=== PATIENT | female | born 1950 | race Caucasian/White ===

== ENCOUNTER 2018-05-16 19:30 | Observation (INO) ==
[2018-05-16 20:45] LABS: Basophils % 0.2 %; Eosinophils # 0.2 K/mcL (0.0-0.6); Eosinophils % 1.6 %; Hematocrit 37.4 % (35.3-44.9); Hemoglobin 11.6 g/dL (11.5-15.4); Immature Granulocytes % 0.5 % (0-4); Lymphocytes # 1.6 K/mcL (0.6-4.6); Lymphocytes % 14.9 %; Mean Corpuscular Hemoglobin 32.5 pg (28.0-33.3); Mean Corpuscular Volume 104.8 fL (83.0-100.0); Monocytes # 1.3 K/mcL (0.0-1.3); Monocytes % 11.5 %; Neutrophils # 7.8 K/mcL (1.6-8.9); Platelet Count 223 K/mcL (140-400); Red Blood Count 3.57 M/mcL (3.82-4.97); Red Cell Distribution Width 14.1 % (11.5-14.5); Segmented Neutrophils % 71.3 %
[2018-05-16 21:04] LABS: Alanine Aminotransferase 11 Units/L (7-52); Albumin 3.8 g/dL (3.5-5.7); Albumin/Globulin Ratio 1.3 (1.1-2.2); Alkaline Phosphatase 62 Units/L (34-104); Aspartate Amino Transferase 14 Units/L (13-39); BUN/Creatinine Ratio 15 (6-26); Bilirubin,Total 0.4 mg/dL (0.3-1.0); Blood Urea Nitrogen 22 mg/dL (8-23); Calcium 9.8 mg/dL (8.6-10.3); Carbon Dioxide 27 mEq/L (23-29); Chloride 105 mEq/L (98-107); Globulin 2.9 g/dL (2.4-3.5); Glucose 101 mg/dL (70-105); Osmolality,Calculated 293 (280-300); Potassium 3.7 mEq/L (3.5-5.1); Sodium 140 mEq/L (136-145); Total Protein 6.7 g/dL (6.4-8.9); eGFR For Non-African Americans 37 (> 60)
[2018-05-16] MEDS ORDERED: Clindamycin 600 MG/50 ML 600 MG/50 ML IV.SOLN IVPB STA (21:07)
[2018-05-16 21:11] LABS: Troponin I < 0.03 ng/mL (< 0.04)
[2018-05-16] MEDS ORDERED: 0.9 % Sodium Chloride 1,000 ML IVC SCH (21:15)
--- NOTE | 2018-05-16 22:16 | Emergency Department Note ---
Disposition Clinical Impression: RAO (acute kidney injury), Cellulitis of leg, left Disposition: Home, Self-Care Condition: Good Weakness HPI - General Chief complaint: ED Weakness Stated complaint: increased weakness Time Seen by Provider: 05/16/18 20:00 Source: patient Mode of arrival: private vehicle Limitations: no limitations Nursing Notes Reviewed: Yes Vital Signs Reviewed: Yes - History of Present Illness HPI Narrative: Patient presents to the ED complaining of generalized weakness with tingling cramping pain in her arms and fingers and headache. She states symptoms began around 8 AM this morning. States that she normally has generalized weakness but felt weaker than usual today and is felt like her gait has been unsteady. She also reports some increased shortness of breath with exertion that started this evening. She also complains of redness, swelling and wants to her left lower leg. She states that she bumped it 2 days ago and had an episode of heavy bleeding, likely from a varicose vein. Since then she has had spreading redness, swelling and warmth over the left anterior morales. She has a history of recurrent cellulitis with similar symptoms in the past and was recently treated for venous ulcer wound on the left leg. She took some leftover Keflex today She denies any recent falls or other form of injury. She drove herself here. She has chronic neck and back pain and normally takes Percocet with last dose of 5 PM this evening. She also tried using her inhaler this evening for her cough and shortness of breath. She wears home oxygen at 3 L/m at night and reports good compliance. Her headache is bitemporal in location, has been intermittent for the past week and throbbing in nature. The cramping pain and tingling sensation in her fingers has been intermittent as well, only affects the upper arms and has been going on for the past 4-5 days. She reports a cough productive of white phlegm for the past month. Pain Scale: 8 - Related Data Home Medications Medication Instructions Recorded Confirmed Allopurinol [Zyloprim 300 MG] 300 mg PO DAILY 11/18/17 05/16/18 Budesonide/Formoterol 160/4.5 2 puff IH BIDR 11/18/17 05/16/18 [Symbicort 160/4.5] Ipratropium/Albuterol Neb [Duoneb] 3 ml IH Q6HR PRN 11/18/17 04/24/18 Lisinopril [Zestril] 40 mg PO DAILY 11/18/17 05/16/18 Polyethylene Glycol 3350 [MiraLAX] 17 gm PO PRN PRN 11/18/17 05/16/18 Raloxifene [Evista] 60 mg PO DAILY 11/18/17 05/16/18 Rosuvastatin Calcium [Crestor] 20 mg PO DAILY 11/18/17 05/16/18 Tiotropium [Spiriva] 18 mcg IH 0700 11/18/17 05/16/18 Baclofen 20 mg PO BID 04/24/18 05/16/18 Esomeprazole Magnesium [Nexium] 40 mg PO DAILY 04/24/18 05/16/18 Furosemide [Lasix] 20 mg PO DAILY PRN 04/24/18 05/16/18 Venlafaxine XR (24 HR) [Effexor Xr] 150 mg PO DAILY 04/24/18 05/16/18 Cephalexin [Keflex] 500 mg PO BID 05/01/18 05/16/18 Baclofen [Lioresal] 10 mg PO BID 05/16/18 05/16/18 Guaifenesin [Mucinex] 600 mg PO DAILY 05/16/18 05/16/18 Metoprolol [Lopressor] 50 mg PO BID 05/16/18 05/16/18 Nicotine Patch [Nicoderm] 7 mg TD DAILY 05/16/18 05/16/18 Previous Rx's Medication Instructions Recorded Oxycodone HCl/Acetaminophen 1 each PO TID PRN 5 Days #15 tablet 04/26/18 [Percocet 5-325 mg Tablet] Allergies Allergy/AdvReac Type Severity Reaction Status Date / Time adhesive tape Allergy Hives Verified 05/16/18 20:06 pregabalin [From Lyrica] Allergy Dizziness Verified 05/16/18 20:06 Sulfa (Sulfonamide Allergy Swelling Verified 05/16/18 20:06 Antibiotics) of the Eye alprazolam [From Xanax] AdvReac Fatigued Verified 05/16/18 20:06 amitriptyline AdvReac Fatigued Verified 05/16/18 20:06 gabapentin AdvReac See Verified 05/16/18 20:06 Comments Tizanidine AdvReac Rash Verified 05/16/18 20:06 Constitutional: Denies: fever, chills, weakness, weight change Eyes: Denies: eye pain, eye discharge, vision change ENT ED: Denies: ear pain, throat pain, dental pain, hearing loss, epistaxis, congestion, dysphagia Cardiovascular: Reports: dyspnea on exertion. Denies: chest pain, palpitations , edema, syncope Respiratory: Reports: cough, dyspnea Gastrointestinal: Denies: abdominal pain, nausea, vomiting, diarrhea, constipation, hematemesis, melena, hematochezia Genitourinary: Reports: as per HPI. Denies: dysuria, frequency, hematuria, discharge Musculoskeletal: Denies: back pain, neck pain, arthralgia, myalgia Integumentary: Denies: rash, abrasion, lesions Neurological: Reports: as per HPI, headache, weakness Psychiatric: Denies: anxiety, depression, suicidal thoughts, homicidal thoughts , auditory hallucinations, visual hallucinations Endocrine: Denies: fatigue Hematological/Lymphatic: Denies: easy bleeding, easy bruising Allergic/Immunologic: Denies: facial swelling, urticaria Past Medical History - Past Medical History Medical history: Reports: cancer, COPD, GERD, hyperlipidemia, hypertension Surgical history: Reports: breast surgery, cancer surgery, hip replacement, orthopedic, other, other Psychiatric history: Reports: no psych history - Social History Smoking Status: Former smoker Smokeless Tobacco Status: No Alcohol use: Reports: none Drug use: Reports: none Physical Exam - General Limitations: no limitations General appearance: alert, in no apparent distress - Head Head exam: atraumatic, normocephalic, normal inspection - Eye Eye exam: Present: normal appearance, PERRL, EOMI - ENT ENT exam: normal exam, normal oropharynx, mucous membranes moist - Neck Neck exam: Present: normal inspection, full ROM, trachea midline - Chest Chest inspection: Present: normal inspection, symmetric chest wall rise - Respiratory Respiratory exam: Present: normal lung sounds bilaterally - Cardiovascular Cardiovascular exam: Present: regular rate, normal rhythm, normal heart sounds - Abdominal Exam Abdominal exam: Present: soft, Non-Tender. Absent: tenderness, distention, guarding, rebound, rigidity - Extremities Exam Extremities exam: Present: normal inspection, full ROM. Absent: tenderness, pedal edema - Expanded Lower Extremity Exam Knee exam: Present: normal inspection, full ROM Lower leg exam: Present: swelling (left), erythema (and warmth, left), other ( varicose veins) Ankle exam: Present: normal inspection, full ROM Neurovascular/Tendon exam: Absent: motor deficit, sensory deficit, tendon deficit - Back Exam Back exam: Present: normal inspection, full ROM. Absent: tenderness - Neurological Exam Neurological exam: Present: alert, oriented X3 - Psychiatric Psychiatric exam: Present: normal affect, normal mood - Skin Skin exam: Present: warm, dry, intact, normal color Course Course Narrative: Patient presents to the ED complaining of worsening of some generalized weakness , tingling and pain in her upper arms as well as headache and left leg redness, and warmth. Given the neurologic symptoms head CT was completed shortly after arrival and was normal. EKG showed tachycardia but was otherwise normal. Physical exam is notable for what appears to be cellulitis of the left anterior morales with redness, swelling and warmth a small scabbed area over a superficial varicosity. Given patient's symptoms will obtain chest x-ray and additional lab work and started on IV antibiotics for the cellulitis. - Reevaluation(s) Reevaluation #1: Laboratory studies did not show any leukocytosis and lactic acid was normal. Creatinine however was elevated but patient's bed baseline. She started on IV fluids as well as antibiotics. Discussed with patient admission for continued hydration and IV antibiotics and monitoring of symptoms and she is in agreement. Reevaluation #2: I spoke to Dr. Sanchez who has agreed to accept the patient. Patient and spouse updated on plan. Time: 22:46 Vital Signs Temperature 99.8 F H 05/16/18 19:31 Pulse Rate 120 05/16/18 19:31 Respiratory Rate 18 05/16/18 19:31 Blood Pressure 123/73 05/16/18 19:31 O2 Sat by Pulse Oximetry 91 05/16/18 19:31 Temperature 99.3 F 05/17/18 00:22 Pulse Rate 107 05/17/18 00:22 Respiratory Rate 17 05/17/18 00:22 Blood Pressure 120/69 05/17/18 00:22 O2 Sat by Pulse Oximetry 97 05/17/18 00:22 Oxygen Delivery Oxygen Delivery Nasal Cannula Weakness - Differential Diagnosis Differential Diagnosis: Likely: sepsis/infection, dehydration, metabolic. Unlikely: stroke - Medical Records Medical records reviewed: Yes I reviewed the patient's medical records. - Lab Data Lab results reviewed: Yes I reviewed the patient's lab results. Result diagrams: 05/16/18 20:34 05/16/18 20:34 Lab Results 05/16/18 05/16/18 05/16/18 Range/Units 20:34 20:34 20:34 WBC 10.9 (4.3-11.1) K/mcL RBC 3.57 L (3.82-4.97) M/mcL Hgb 11.6 (11.5-15.4) g/dL Hct 37.4 (35.3-44.9) % MCV 104.8 H (83.0-100.0) fL MCH 32.5 (28.0-33.3) pg MCHC 31.0 L (31.6-35.5) g/dL RDW 14.1 (11.5-14.5) % Plt Count 223 (140-400) K/mcL MPV 10.0 (9.4-12.4) fL Immature Gran % 0.5 (0-4) % Seg Neutrophils % 71.3 % Lymphocytes % 14.9 % Monocytes % 11.5 % Eosinophils % 1.6 % Basophils % 0.2 % Neutrophils # 7.8 (1.6-8.9) K/mcL Lymphocytes # 1.6 (0.6-4.6) K/mcL Monocytes # 1.3 (0.0-1.3) K/mcL Eosinophils # 0.2 (0.0-0.6) K/mcL Basophils # 0.0 (0.0-0.2) K/mcL Sodium 140 (136-145) mEq/L Potassium 3.7 (3.5-5.1) mEq/L Chloride 105 (98-107) mEq/L Carbon Dioxide 27 (23-29) mEq/L BUN 22 (8-23) mg/dL Creatinine 1.44 H (0.60-1.20) mg/dL Est GFR ( Amer) 44 L (> 60) Est GFR (Non-Af Amer) 37 L (> 60) BUN/Creatinine Ratio 15 (6-26) Glucose 101 (70-105) mg/dL Calculated Osmolality 293 (280-300) Lactic Acid 1.0 (0.5-2.2) mmol/L Calcium 9.8 (8.6-10.3) mg/dL Total Bilirubin 0.4 (0.3-1.0) mg/dL AST 14 (13-39) Units/L ALT 11 (7-52) Units/L Alkaline Phosphatase 62 (34-104) Units/L Troponin I < 0.03 (< 0.04) ng/mL Serum Total Protein 6.7 (6.4-8.9) g/dL Albumin 3.8 (3.5-5.7) g/dL Globulin 2.9 (2.4-3.5) g/dL Albumin/Globulin Ratio 1.3 (1.1-2.2) - Radiology Data Radiology results reviewed: Yes I reviewed the patient's radiology results. ITS Impressions Head CT 05/16/18 19:48 IMPRESSION: No acute intracranial abnormality. Findings were discussed with Dr. Keren Mishra of the [facility] emergency department at 8:15 pm on 05/16/2018. D/ / Vick Geller MD / Vick Geller MD Interpreting Provider: Vick Geller MD Chest X-Ray 05/16/18 21:08 IMPRESSION: Negative portable chest D/ / Arias Willoughby MD / Arias Willoughby MD Interpreting Provider: Arias Willoughby MD - EKG Data EKG attestation: Yes I reviewed and interpreted this EKG. EKG shows normal: sinus rhythm Rate: tachycardia (rate 116) Rhythm: NSR [place]ell/QRS: normal Interpretation: no acute changes, unchanged when compared to prior tracing (date ) (04/24/18), nonspecific ST-T wave changes
[2018-05-16] MEDS ORDERED: Naloxone 0.4 MG/ML INJ IVP PRN (23:05)
[2018-05-17] MEDS ORDERED: Naloxone 0.4 MG/ML INJ IVP PRN (00:15)
[2018-05-17] MEDS ORDERED: 0.9 % Sodium Chloride 1,000 ML IVC SCH (00:15)
[2018-05-17 03:04] LABS: Bilirubin,Urine Negative (Negative); Blood,Urine Negative (Negative); Clarity,Urine Clear (Clear); Color,Urine Yellow (Yellow); Glucose,Urine (UA) Normal (Normal); Ketones,Urine Negative (Negative); Leukocyte Esterase,Urine Negative (Negative); Nitrite,Urine Negative (Negative); Protein,Urine Negative (Neg-Trace); Urobilinogen,Urine Normal (Normal)
[2018-05-17 07:20] LABS: Calcium 9.2 mg/dL (8.6-10.3); Potassium 3.5 mEq/L (3.5-5.1)
[2018-05-17] MEDS: Venlafaxine XR (24 HR) 150 MG CAP.ER.24H PO SCH (08:53)
[2018-05-17] MEDS: Baclofen 10 MG TABLET PO SCH ×2 (08:54→21:16)
[2018-05-17] MEDS ORDERED: Lisinopril 20 MG TABLET PO SCH (09:00)
[2018-05-17] MEDS ORDERED: Baclofen 10 MG TABLET PO SCH (09:00)
[2018-05-17] MEDS ORDERED: Nicotine 7 MG PATCH.TD24 TD SCH (09:00)
[2018-05-17] MEDS: Tiotropium 18 MCG inhalation IH SCH (11:46)
[2018-05-17] MEDS: Budesonide/Formoterol 160/4.5 1 PUFF INH IH SCH ×2 (11:46→21:19)
--- NOTE | 2018-05-17 12:14 | Internal Med History&Physical ---
Date of Encounter: 05/17/18 Time of Encounter: 11:35 Assessment and Plan (1) Renal failure (ARF), acute on chronic Current visit: No Status: Acute Will hold Lasix and lisinopril. Give IV fluids and monitor renal indices. Qualifiers: Acute renal failure type: unspecified Chronic kidney disease stage: stage 3 (moderate) Qualified Code(s): N17.9 - Acute kidney failure, unspecified; N18.3 - Chronic kidney disease, stage 3 (moderate) (2) Venous stasis dermatitis of both lower extremities Current visit: Yes Status: Acute Keep legs elevated and monitor. Will not give antibiotics. (3) Macrocytosis without anemia Current visit: Yes Status: Acute Workup earlier this month showed B12 > 1500, folate 11.9, and TSH 0.83. (4) HTN (hypertension) Current visit: No Status: Chronic Continue Lopressor. Hold Zestril for now and monitor blood pressure and renal indices. Qualifiers: Hypertension type: essential hypertension Qualified Code(s): I10 - Essential (primary) hypertension (5) COPD (chronic obstructive pulmonary disease) Current visit: No Status: Chronic Continue Symbicort and Spiriva. Qualifiers: COPD type: unspecified COPD Qualified Code(s): J44.9 - Chronic obstructive pulmonary disease, unspecified Internal Medicine - H&P: HPI Chief complaint: Weakness, leg redness Admitted From: Emergency Dept Plans for Post Hospital Care: Home History of present illness: Ms. Armijo is a 67 year old female who came to emergency room stating she had noted redness in her legs 3 days earlier, more right leg than left leg. She had progressive weakness and a small amount of diarrhea after arising on the day of admission. She took a leftover Keflex till from a previous prescription without significant improvement. She came to emergency room and was evaluated and found to have acute on chronic renal failure and leg erythema possibly cellulitis. She was admitted to [facility] floor for ongoing care needs. She states she has had previous similar leg erythema and is been treated with multiple courses of antibiotics. 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 She has history of kidney stones but denies other kidney or bladder disorders. Past Med Surg Social Fam HX - Past Medical History Medical history: cancer, COPD, GERD, hyperlipidemia, hypertension Additional medical history: breast ca Psychiatric history: no psych history - Past Surgical History Surgical History: breast surgery, cancer surgery, hip replacement, orthopedic, other, other Additional surgical history: bilat knee replacement; right hip; femur surgery, left lumpectomy - Social History Smoking Status: Former smoker Smokeless Tobacco Status: No Alcohol use: none Drug use: none - Family History Mother Living Status: Hx Family Cardiac Disorders: Yes Hx Family Cancer: No Hx Family GI Disorders: No Hx Family Endocrine Disorder: Yes (DM) Hx Family Neuromuscular Disorders: No Hx Family Neurologic Disorders: No Hx Family HEENT Disorders: No Hx Family Autoimmune Disorders: No Father Living Status: Hx Family Cardiac Disorders: Yes Hx Family Respiratory Disorders: No Hx Family Cancer: Yes (Colon) Hx Family GI Disorders: No Hx Family Endocrine Disorder: No Hx Family Neuromuscular Disorders: No Hx Family Neurologic Disorders: No Hx Family HEENT Disorders: No Hx Family Autoimmune Disorders: No Internal Medicine - H&P: Meds Allopurinol [Zyloprim 300 MG] 300 mg PO DAILY 11/18/17 [History] Budesonide/Formoterol 160/4.5 [Symbicort 160/4.5] 2 puff IH BIDR 11/18/17 [ History] Ipratropium/Albuterol Neb [Duoneb] 3 ml IH Q6HR PRN 11/18/17 [History] Lisinopril [Zestril] 40 mg PO DAILY 11/18/17 [History] Polyethylene Glycol 3350 [MiraLAX] 17 gm PO PRN PRN 11/18/17 [History] Raloxifene [Evista] 60 mg PO DAILY 11/18/17 [History] Rosuvastatin Calcium [Crestor] 20 mg PO DAILY 11/18/17 [History] Tiotropium [Spiriva] 18 mcg IH 0700 11/18/17 [History] Baclofen 20 mg PO BID 04/24/18 [History] Esomeprazole Magnesium [Nexium] 40 mg PO DAILY 04/24/18 [History] Furosemide [Lasix] 20 mg PO DAILY PRN 04/24/18 [History] Venlafaxine XR (24 HR) [Effexor Xr] 150 mg PO DAILY 04/24/18 [History] Oxycodone HCl/Acetaminophen [Percocet 5-325 mg Tablet] 1 each PO TID PRN 5 Days #15 tablet 08/09/18 [Rx] Cephalexin [Keflex] 500 mg PO BID 05/01/18 [History] Guaifenesin [Mucinex] 600 mg PO DAILY 05/16/18 [History] Metoprolol [Lopressor] 50 mg PO BID 05/16/18 [History] Nicotine Patch [Nicoderm] 7 mg TD DAILY 05/16/18 [History] 3 Allergy/AdvReac Type Severity Reaction Status Date / Time adhesive tape Allergy Hives Verified 05/16/18 20:06 pregabalin [From Lyrica] Allergy Dizziness Verified 05/16/18 20:06 Sulfa (Sulfonamide Allergy Swelling Verified 05/16/18 20:06 Antibiotics) of the Eye alprazolam [From Xanax] AdvReac Fatigued Verified 05/16/18 20:06 amitriptyline AdvReac Fatigued Verified 05/16/18 20:06 gabapentin AdvReac See Verified 05/16/18 20:06 Comments Tizanidine AdvReac Rash Verified 05/16/18 20:06 All Systems PM: A 10-system review of systems was performed and is negative for pertinent findings except as documented above in the HPI. Review of systems: Gen.: Her weight has been stable at approximate 78 kg since March 2016 [facility] hospitalization. Cardiovascular: She has history of hypertension but denies [place] heart failure angina DVT or pulmonary embolus Respiratory: She smoked from age 24 until 6 months ago up to 1 pack per day. She has a diagnosis COPD and wears oxygen at at bedtime and when necessary. She has MARIANO but does not often use her CPAP GI: She denies disorders of her liver gallbladder or exocrine pancreas. She has GERD. : As per history of present illness Neurologic: She denies large distribution strokes or seizures Endocrine: She has been told she has pre-diabetes. Most recent hemoglobin A1c was 5.7% on 03/04/2016. She has hyperlipidemia but denies thyroid disease Hematology/oncology: She has had anemia in the past. She had breast cancer diagnosed 2007 and had lumpectomy, XRT, and chemotherapy. She is presumed cancer free. She denies other known internal malignancies Psychiatric: She has anxiety but denies depression or other mental health issues Musculoskeletal: She has had left elbow tendon surgery, DJD with bilateral total knee replacements, total hip replacement and 4 back surgeries. She has gout and takes allopurinol daily. - Constitutional Vitals: Temp Pulse Resp BP Pulse Ox 98.6 F 72 20 118/73 99 05/17/18 10:21 05/17/18 10:21 05/17/18 10:21 05/17/18 10:21 05/17/18 10:21 Exam: Gen.: She is a well-developed well-nourished female lying comfortably in bed who appears in no acute distress at present time. HEENT: Head is atraumatic and normocephalic. Eyes: EOMI. There is no scleral icterus. Mouth: Mucosa is moist. Neck: Supple and nontender. There is no thyromegaly or adenopathy noted. Heart: Regular without murmurs gallops or ectopics Lungs: No wheezes or crackles are heard. Abdomen: Soft and nontender. No masses or guarding are noted. Extremities: She has erythema of the lower legs bilaterally, significantly more intense on the left. There is increased warmth to touch. There is ill-defined border to the erythema bilaterally. Dorsalis pedis and posterior tibial pulses are trace palpable bilaterally. She has mild DJD changes of her hands. Neurologic: Mental status: She is talkative and a good historian. Cranial nerves: Smile is symmetric. Forehead wrinkles bilaterally. Tongue protrudes midline. EOMI. Motor: There is no pronator drift. Cerebellar: Finger to nose is intact bilaterally. Skin: Warm and dry Internal Med - H&P Results - Labs CBC & Chem 7: 05/16/18 20:34 05/17/18 06:54 Labs: BMP 05/17/18 06:54 Sodium 140 Potassium 3.5 Chloride 110 H Carbon Dioxide 24 BUN 18 Creatinine 1.15 Glucose 115 H Calcium 9.2 Urine 05/16/18 Range/Units 23:50 Urine Color Yellow (Yellow) Urine Clarity Clear (Clear) Urine pH 6.0 (5.0-8.0) pH Units Ur Specific [place] 1.020 (1.010-1.025) Urine Protein Negative (Neg-Trace) mg/dL Urine Glucose (UA) Normal (Normal) mg/dL - VTE Reasons for not Prescribing Prophylaxis: Treatment not Indicated - Low risk for VTE
[2018-05-17] MEDS: 0.45 % Sodium Chloride w/KCl 20 MEQ/1,000 ML MLS IVC SCH ×2 (12:52→23:46)
[2018-05-17] MEDS: *HR* OxyCODONE/APAP 5/325 TABLET PO PRN (21:16)
[2018-05-18 07:25] VITALS: BP 134/86
[2018-05-18 07:56] LABS: BUN/Creatinine Ratio 14 (6-26); Blood Urea Nitrogen 14 mg/dL (8-23); Calcium 9.7 mg/dL (8.6-10.3); Carbon Dioxide 24 mEq/L (23-29); Chloride 112 mEq/L (98-107); Glucose 91 mg/dL (70-105); Osmolality,Calculated 292 (280-300); Potassium 4.1 mEq/L (3.5-5.1); Sodium 141 mEq/L (136-145); eGFR For Non-African Americans 58 (> 60)
[2018-05-18] MEDS: Tiotropium 18 MCG inhalation IH SCH (08:46)
[2018-05-18] MEDS: Budesonide/Formoterol 160/4.5 1 PUFF INH IH SCH (08:47)
[2018-05-18 09:16] LABS: Basophils % 0.5 %; Eosinophils # 0.4 K/mcL (0.0-0.6); Eosinophils % 4.7 %; Hematocrit 39.5 % (35.3-44.9); Hemoglobin 12.1 g/dL (11.5-15.4); Immature Granulocytes % 0.2 % (0-4); Lymphocytes # 2.1 K/mcL (0.6-4.6); Lymphocytes % 25.6 %; Mean Corpuscular HGB Conc 30.6 g/dL (31.6-35.5); Mean Corpuscular Volume 107.6 fL (83.0-100.0); Monocytes # 0.9 K/mcL (0.0-1.3); Monocytes % 10.5 %; Neutrophils # 4.8 K/mcL (1.6-8.9); Platelet Count 212 K/mcL (140-400); Red Blood Count 3.67 M/mcL (3.82-4.97); Red Cell Distribution Width 13.9 % (11.5-14.5); Segmented Neutrophils % 58.5 %
[2018-05-18] MEDS: Venlafaxine XR (24 HR) 150 MG CAP.ER.24H PO SCH (09:55)
[2018-05-18] MEDS: Baclofen 10 MG TABLET PO SCH (09:55)
[2018-05-18] MEDS: *HR* OxyCODONE/APAP 5/325 TABLET PO PRN (09:58)
--- NOTE | 2018-05-18 09:59 | Discharge Summary ---
Orders not resulted at time of discharge: Pending orders 05/18/18 09:00 Hgb A1C AM 0400 Date of Encounter: 05/18/18 Time of Encounter: 09:50 - Discharge Diagnosis (1) Renal failure (ARF), acute on chronic Priority: Primary Status: Acute Qualifiers: Acute renal failure type: unspecified Chronic kidney disease stage: stage 3 (moderate) Qualified Code(s): N17.9 - Acute kidney failure, unspecified; N18.3 - Chronic kidney disease, stage 3 (moderate) (2) Venous stasis dermatitis of both lower extremities Priority: Secondary Status: Acute (3) Macrocytosis without anemia Priority: Secondary Status: Acute (4) HTN (hypertension) Priority: Secondary Status: Chronic Qualifiers: Hypertension type: essential hypertension Qualified Code(s): I10 - Essential (primary) hypertension (5) COPD (chronic obstructive pulmonary disease) Priority: Secondary Status: Chronic Qualifiers: COPD type: unspecified COPD Qualified Code(s): J44.9 - Chronic obstructive pulmonary disease, unspecified Hospital course: Ms. Armijo is a 67 year old female who came to emergency room stating she had noted redness in her legs 3 days earlier, more right leg than left leg. She had progressive weakness and a small amount of diarrhea after arising on the day of admission. She took a leftover Keflex till from a previous prescription without significant improvement. She came to emergency room and was evaluated and found to have acute on chronic renal failure and leg erythema possibly cellulitis. [facility] was [facility] care needs. Initial orders were written by the emergency room physician. I saw her on May 17 and performed a history and physical. I felt she had venous stasis dermatitis rather than bacterial cellulitis of her legs. Antibiotics were not given. She was prescribed leg elevation and I encouraged her to use compression stockings at home. Lasix and lisinopril were held and IV fluids were given. Renal indices improved with BUN and creatinine decreasing to 14 and 0.97 respectively the day of discharge with estimated GFR 58. Her blood pressure remained stable and she will remain off Lasix and lisinopril at discharge. Her PCP can monitor renal indices and blood pressure and determine if additional intervention is needed. There were no other new problems and on May 18 she felt stable for discharge home. She will follow with her PCP Dr. Ramon Geller within 1 week. - Time Spent with Patient Total time spent providing and/or coordinating discharge services: - Discharge Medications Home Medications: Allopurinol [Zyloprim 300 MG] 300 mg PO DAILY 11/18/17 [History] Budesonide/Formoterol 160/4.5 [Symbicort 160/4.5] 2 puff IH BIDR 11/18/17 [ History] Ipratropium/Albuterol Neb [Duoneb] 3 ml IH Q6HR PRN 11/18/17 [History] Polyethylene Glycol 3350 [MiraLAX] 17 gm PO PRN PRN 11/18/17 [History] Raloxifene [Evista] 60 mg PO DAILY 11/18/17 [History] Rosuvastatin Calcium [Crestor] 20 mg PO DAILY 11/18/17 [History] Tiotropium [Spiriva] 18 mcg IH 0700 11/18/17 [History] Baclofen 20 mg PO BID 04/24/18 [History] Esomeprazole Magnesium [Nexium] 40 mg PO DAILY 04/24/18 [History] Venlafaxine XR (24 HR) [Effexor Xr] 150 mg PO DAILY 04/24/18 [History] Oxycodone HCl/Acetaminophen [Percocet 5-325 mg Tablet] 1 each PO TID PRN 5 Days #15 tablet 04/26/18 [Rx] Guaifenesin [Mucinex] 600 mg PO DAILY 05/16/18 [History] Metoprolol [Lopressor] 50 mg PO BID 05/16/18 [History] Nicotine Patch [Nicoderm] 7 mg TD DAILY 05/16/18 [History] Allergies/Adverse Reactions: 3 Allergy/AdvReac Type Severity Reaction Status Date / Time adhesive tape Allergy Hives Verified 05/16/18 20:06 pregabalin [From Lyrica] Allergy Dizziness Verified 05/16/18 20:06 Sulfa (Sulfonamide Allergy Swelling Verified 05/16/18 20:06 Antibiotics) of the Eye alprazolam [From Xanax] AdvReac Fatigued Verified 05/16/18 20:06 amitriptyline AdvReac Fatigued Verified 05/16/18 20:06 gabapentin AdvReac See Verified 05/16/18 20:06 Comments Tizanidine AdvReac Rash Verified 05/16/18 20:06 Date of admission: 05/16/18 23:18 Primary care physician: Ramon Geller MD Consults: 05/17/18 18:38 Consult to Occupational Therapy [CONS] Routine Comment: Evaluate, develop and implement POC Reason for Consult: Weakness Does patient have active BEDREST order?: No Is patient medically & hemodynamically stable?: Yes Patient assessed for mobility or mobilized this visit?: Yes Consult to Physical Therapy [CONS] Routine Comment: Evaluate, develop and implement POC Reason for Consult: Weakness Does patient have active BEDREST order?: No Is patient medically & hemodynamically stable?: Yes Patient assessed for mobility or mobilized this visit?: Yes - Constitutional Vitals: Temp Pulse Resp BP Pulse Ox 98.2 F 72 16 134/86 100 05/18/18 07:22 05/18/18 07:22 05/18/18 07:22 05/18/18 07:22 05/18/18 07:22 - Patient Status Disposition: Home, Self-Care Condition: Good - Discharge Instructions Follow Up With: Ramon Geller MD [Primary Care Provider] - 1 week - Diet and Activity Activity: resume usual activities as tolerated Diet: advance to your usual diet - VTE Reasons for not Prescribing Prophylaxis: Treatment not Indicated - Low risk for VTE
[2018-05-18 13:38] LABS: Estimated Average Glucose 120 mg/dl; Hemoglobin A1C 5.8 %
--- NOTE | 2018-05-21 13:02 | Electrocardiograph Report ---
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
== END 2018-05-18 10:45 | disposition home or self-care (01) ==
LOC: EMEROOPIK 19:30 → INPPIK 19:30
PROVIDERS: ADMIT Internal Medicine; ATTEND Internal Medicine

== ENCOUNTER 2018-07-10 20:43 | Observation (INO) ==
[2018-07-10] MEDS ORDERED: Ipratropium/Albuterol Neb 3 ML IH ONE (21:05)
[2018-07-10] MEDS ORDERED: 0.9 % Sodium Chloride 1,000 ML IVC ONE (21:05)
[2018-07-10 21:43] LABS: Basophils % 0.2 %; Eosinophils # 0.1 K/mcL (0.0-0.6); Eosinophils % 0.7 %; Hematocrit 36.8 % (35.3-44.9); Hemoglobin 11.8 g/dL (11.5-15.4); Immature Granulocytes % 0.7 % (0-4); Lymphocytes # 1.6 K/mcL (0.6-4.6); Lymphocytes % 10.3 %; Mean Corpuscular HGB Conc 32.1 g/dL (31.6-35.5); Mean Corpuscular Hemoglobin 32.2 pg (28.0-33.3); Mean Corpuscular Volume 100.3 fL (83.0-100.0); Mean Platelet Volume 9.5 fL (9.4-12.4); Monocytes # 1.4 K/mcL (0.0-1.3); Monocytes % 9.4 %; Platelet Count 220 K/mcL (140-400); Red Blood Count 3.67 M/mcL (3.82-4.97); Red Cell Distribution Width 14.2 % (11.5-14.5); Segmented Neutrophils % 78.7 %
[2018-07-10 21:51] LABS: Prothrombin Time 11.6 Seconds (9.4-12.1)
[2018-07-10] MEDS ORDERED: Levofloxacin 750 MG/150 ML 750 MG/150 ML BAG IVPB ONE (22:01)
[2018-07-10 22:03] LABS: BUN/Creatinine Ratio 12 (6-26); Blood Urea Nitrogen 13 mg/dL (8-23); Calcium 9.8 mg/dL (8.6-10.3); Carbon Dioxide 27 mEq/L (23-29); Chloride 100 mEq/L (98-107); Glucose 114 mg/dL (70-105); Osmolality,Calculated 277 (280-300); Potassium 3.5 mEq/L (3.5-5.1); Sodium 133 mEq/L (136-145); Troponin I < 0.03 ng/mL (< 0.04); eGFR For Non-African Americans 53 (> 60)
--- NOTE | 2018-07-10 22:04 | Emergency Department Note ---
Disposition Clinical Impression: Acute exacerbation of chronic obstructive airways disease, Cellulitis of right lower extremity Disposition: Admitted As Inpatient Condition: Fair Referrals: Ramon Geller MD [Primary Care Provider] - Forms: ED Satisfaction Letter Time of Disposition: 22:42 SOB HPI - General Chief Complaint: ED Shortness of Breath/Dyspnea Stated Complaint: Dyspnea onset this AM, redness, edema right leg Time Seen by Provider: 07/10/18 21:03 Source: patient, family, EMS Mode of arrival: EMS Limitations: no limitations Nursing Notes Reviewed: Yes Vital Signs Reviewed: Yes - History of Present Illness Pt Subjective Complaint: shortness of breath, cough Onset (ago): day(s) (3 days) Severity: moderate Consistency/Duration: gradually worsening Improves with: nothing Worsens with: exertion Known history of: COPD Associated symptoms: Reports: fever, cough Treatment prior to arrival: oxygen, bronchodilator Cough present: Yes Cough Description: Productive Cough Frequency: Intermittent Sputum production: Yes Sputum Amount: Moderate - Related Data Home Medications Medication Instructions Recorded Confirmed Allopurinol [Zyloprim 300 MG] 300 mg PO DAILY 11/18/17 07/10/18 Budesonide/Formoterol 160/4.5 2 puff IH BIDR 11/18/17 07/10/18 [Symbicort 160/4.5] Ipratropium/Albuterol Neb [Duoneb] 3 ml IH Q6HR PRN 11/18/17 07/10/18 Polyethylene Glycol 3350 [MiraLAX] 17 gm PO PRN PRN 11/18/17 07/10/18 Raloxifene [Evista] 60 mg PO DAILY 11/18/17 07/10/18 Rosuvastatin Calcium [Crestor] 20 mg PO DAILY 11/18/17 07/10/18 Tiotropium [Spiriva] 18 mcg IH 0700 11/18/17 07/10/18 Baclofen 20 mg PO BID 04/24/18 07/10/18 Esomeprazole Magnesium [Nexium] 40 mg PO DAILY 04/24/18 07/10/18 Venlafaxine XR (24 HR) [Effexor Xr] 150 mg PO DAILY 04/24/18 07/10/18 Guaifenesin [Mucinex] 600 mg PO DAILY 05/16/18 07/10/18 Metoprolol [Lopressor] 50 mg PO BID 05/16/18 07/10/18 Nicotine Patch [Nicoderm] 7 mg TD DAILY 05/16/18 07/10/18 Previous Rx's Medication Instructions Recorded Oxycodone HCl/Acetaminophen 1 each PO TID PRN 5 Days #15 tablet 04/26/18 [Percocet 5-325 mg Tablet] Allergies Allergy/AdvReac Type Severity Reaction Status Date / Time adhesive tape Allergy Hives Verified 05/16/18 20:06 pregabalin [From Lyrica] Allergy Dizziness Verified 05/16/18 20:06 Sulfa (Sulfonamide Allergy Swelling Verified 05/16/18 20:06 Antibiotics) of the Eye alprazolam [From Xanax] AdvReac Fatigued Verified 05/16/18 20:06 amitriptyline AdvReac Fatigued Verified 05/16/18 20:06 gabapentin AdvReac See Verified 05/16/18 20:06 Comments Tizanidine AdvReac Rash Verified 05/16/18 20:06 All systems ED: reviewed and negative except as stated. Constitutional: Reports: fever, chills ENT ED: Reports: congestion. Denies: ear pain, throat pain Cardiovascular: Denies: chest pain, palpitations Respiratory: Reports: cough, dyspnea, wheezes Gastrointestinal: Denies: abdominal pain, nausea, vomiting, diarrhea Integumentary: Reports: rash (Redness to bilateral lower extremities, especially the right that has developed over the past 48 hours.) Neurological: Denies: headache Psychiatric: Reports: anxiety Past Medical History - Past Medical History Attestation: Yes The following information was validated with the patient. Source: patient, old records reviewed, obtained from family, nursing notes reviewed Medical history: Reports: cancer, COPD, GERD, hyperlipidemia, hypertension Surgical history: Reports: breast surgery, cancer surgery, hip replacement, orthopedic, other, other Psychiatric history: Reports: no psych history - Social History Smoking Status: Former smoker Smokeless Tobacco Status: No Alcohol use: Reports: none Drug use: Reports: none Physical Exam - General Limitations: no limitations General appearance: alert, other (Tachypneic and coughing) - Head Head exam: atraumatic, normocephalic, normal inspection - Eye Eye exam: Present: normal appearance, PERRL, EOMI. Absent: scleral icterus, conjunctival injection - ENT ENT exam: normal exam, normal oropharynx, mucous membranes moist, TM's normal bilaterally, normal external ear exam - Neck Neck exam: Present: normal inspection, full ROM. Absent: meningismus - Chest Chest inspection: Present: normal inspection, symmetric chest wall rise. Absent: tenderness - Respiratory Respiratory exam: Present: other (Course breath sounds bilaterally associated with tachypnea) - Cardiovascular Cardiovascular exam: Present: normal rhythm, tachycardia, normal heart sounds - Abdominal Exam Abdominal exam: Present: soft, Non-Tender, normal bowel sounds - Extremities Exam Extremities exam: Present: other (Bilateral lower extremity's have some edema and obvious cellulitis to the anterior aspect of the right leg and small amount of cellulitis to the lateral aspect of the left lower leg.) - Neurological Exam Neurological exam: Present: alert, oriented X3 - Psychiatric Psychiatric exam: Present: anxious - Skin Skin exam: Present: warm, dry Course Course Narrative: Patient presents with shortness of breath and cough and congestion as well as rule out for the past 3 days. Breath sounds are coarse. She has history of COPD. She does have fever. Questions is whether the fevers coming from what going on in the lungs or whether the fevers coming from was going on in the legs. She definitely has bilateral lower extremity cellulitis but the right side is definitely worse. I will get an infection workup going on the patient. We will get her started on antibiotics. I am going to choose Vanco and Levaquin to double cover the lungs and the legs. She will need to be admitted to the hospital. - Reevaluation(s) Reevaluation #1: Chest x-ray was clear. Patient's temperatures up to 101. White count is 15. Definitely cellulitis to the right lower extremity. I started her on vancomycin and Levaquin. I spoke with the hospitalist and arrange to have her admitted. Time: 22:41 - Consultations Consultation #1: Dr. Sanchez, hospitalist - I discussed case with the hospitalist. We discussed patient's presentation and ER course and treatment thus far. He is accepted pa asha for admission. Time: 22:41 Vital Signs Temperature 100.5 F H 07/10/18 20:48 Pulse Rate 112 07/10/18 20:48 Respiratory Rate 28 07/10/18 20:48 Blood Pressure 133/91 07/10/18 20:48 O2 Sat by Pulse Oximetry 95 07/10/18 20:48 Temperature 100.5 F H 07/10/18 20:48 Pulse Rate 112 07/10/18 20:48 Respiratory Rate 28 07/10/18 20:48 Blood Pressure 133/91 07/10/18 20:48 O2 Sat by Pulse Oximetry 95 07/10/18 20:48 Oxygen Delivery Oxygen Delivery Room Air Shortness of Breath/Dyspnea - Medical Records Medical records reviewed: Yes I reviewed the patient's medical records. - Lab Data Lab results reviewed: Yes I reviewed the patient's lab results. Result diagrams: 07/10/18 21:25 07/10/18 21:25 Lab Results 07/10/18 07/10/18 07/10/18 Range/Units 21:25 21:25 21:25 WBC 15.2 H (4.3-11.1) K/mcL RBC 3.67 L (3.82-4.97) M/mcL Hgb 11.8 (11.5-15.4) g/dL Hct 36.8 (35.3-44.9) % MCV 100.3 H (83.0-100.0) fL MCH 32.2 (28.0-33.3) pg MCHC 32.1 (31.6-35.5) g/dL RDW 14.2 (11.5-14.5) % Plt Count 220 (140-400) K/mcL MPV 9.5 (9.4-12.4) fL Immature Gran % 0.7 (0-4) % Seg Neutrophils % 78.7 % Lymphocytes % 10.3 % Monocytes % 9.4 % Eosinophils % 0.7 % Basophils % 0.2 % Neutrophils # 12.0 H (1.6-8.9) K/mcL Lymphocytes # 1.6 (0.6-4.6) K/mcL Monocytes # 1.4 H (0.0-1.3) K/mcL Eosinophils # 0.1 (0.0-0.6) K/mcL Basophils # 0.0 (0.0-0.2) K/mcL PT 11.6 (9.4-12.1) Seconds INR 1.0 Sodium 133 L (136-145) mEq/L Potassium 3.5 (3.5-5.1) mEq/L Chloride 100 (98-107) mEq/L Carbon Dioxide 27 (23-29) mEq/L BUN 13 (8-23) mg/dL Creatinine 1.05 (0.60-1.20) mg/dL Est GFR ( Amer) > 60 (> 60) Est GFR (Non-Af Amer) 53 L (> 60) BUN/Creatinine Ratio 12 (6-26) Glucose 114 H (70-105) mg/dL Calculated Osmolality 277 L (280-300) Lactic Acid (0.5-2.2) mmol/L Calcium 9.8 (8.6-10.3) mg/dL Troponin I < 0.03 (< 0.04) ng/mL B-Natriuretic Peptide (Less than 100) pg/mL 07/10/18 07/10/18 Range/Units 21:25 21:25 WBC (4.3-11.1) K/mcL RBC (3.82-4.97) M/mcL Hgb (11.5-15.4) g/dL Hct (35.3-44.9) % MCV (83.0-100.0) fL MCH (28.0-33.3) pg MCHC (31.6-35.5) g/dL RDW (11.5-14.5) % Plt Count (140-400) K/mcL MPV (9.4-12.4) fL Immature Gran % (0-4) % Seg Neutrophils % % Lymphocytes % % Monocytes % % Eosinophils % % Basophils % % Neutrophils # (1.6-8.9) K/mcL Lymphocytes # (0.6-4.6) K/mcL Monocytes # (0.0-1.3) K/mcL Eosinophils # (0.0-0.6) K/mcL Basophils # (0.0-0.2) K/mcL PT (9.4-12.1) Seconds INR Sodium (136-145) mEq/L Potassium (3.5-5.1) mEq/L Chloride (98-107) mEq/L Carbon Dioxide (23-29) mEq/L BUN (8-23) mg/dL Creatinine (0.60-1.20) mg/dL Est GFR ( Amer) (> 60) Est GFR (Non-Af Amer) (> 60) BUN/Creatinine Ratio (6-26) Glucose (70-105) mg/dL Calculated Osmolality (280-300) Lactic Acid 0.9 (0.5-2.2) mmol/L Calcium (8.6-10.3) mg/dL Troponin I (< 0.04) ng/mL B-Natriuretic Peptide 94 (Less than 100) pg/mL - Radiology Data Radiology results reviewed: Yes I reviewed the patient's radiology results. - EKG Data EKG attestation: Yes I reviewed and interpreted this EKG. EKG results narrative: Twelve-lead EKG performed at 20 1:21 PM and ordered, reviewed and interpreted by ED physician a sinus tachycardia at a rate of 123. Normal axis. Good hour progression across corneum. There is artifact but no obvious acute ischemic changes.
[2018-07-10] MEDS ORDERED: Aminoglycoside Consult 1 EACH MC ONE (23:00)
[2018-07-11] MEDS ORDERED: Naloxone 0.4 MG/ML INJ IVP PRN (00:08)
[2018-07-11 00:46] LABS: ABG Base Excess -1 mEq/L (-2 to 3); ABG HCO3 23 mEq/L (21-27); ABG Oxygen Saturation 96 % (95-98); ABG PCO2 38 mmHg (35-45); ABG PH 7.39 pH Units (7.32-7.45); ABG PO2 84 mmHg (85-104); ABG TCO2 24 mEq/L (20-26)
[2018-07-11] MEDS: Ipratropium/Albuterol Neb 3 ML IH SCH ×4 (00:59→13:55)
[2018-07-11] MEDS: 0.9 % Sodium Chloride 1,000 ML IVC SCH ×2 (02:18→10:02)
[2018-07-11 05:25] LABS: Bilirubin,Urine Negative (Negative); Blood,Urine Negative (Negative); Clarity,Urine Clear (Clear); Color,Urine Yellow (Yellow); Glucose,Urine (UA) Normal (Normal); Ketones,Urine Negative (Negative); Leukocyte Esterase,Urine Negative (Negative); Nitrite,Urine Negative (Negative); PH,Urine 6.5 pH Units (5.0-8.0); Protein,Urine Negative (Neg-Trace); Specific Gravity,Urine <= 1.005 (1.010-1.025); Urobilinogen,Urine Normal (Normal)
[2018-07-11] MEDS: Tiotropium 18 MCG inhalation IH SCH (08:28)
[2018-07-11] MEDS: Budesonide/Formoterol 160/4.5 1 PUFF INH IH SCH ×2 (08:39→21:38)
[2018-07-11] MEDS: *HR* OxyCODONE/APAP 5/325 TABLET PO PRN ×2 (09:55→18:43)
[2018-07-11] MEDS: Nicotine 7 MG PATCH.TD24 TD SCH (09:56)
[2018-07-11] MEDS: Venlafaxine XR (24 HR) 150 MG CAP.ER.24H PO SCH (09:56)
[2018-07-11] MEDS ORDERED: Albuterol 2.5 MG/3 ML NEBULIZER IH PRN (12:25)
[2018-07-11] MEDS ORDERED: Acetaminophen 325 MG TABLET PO PRN (12:27)
--- NOTE | 2018-07-11 12:33 | Internal Med History&Physical ---
Date of Encounter: 07/11/18 Time of Encounter: 12:05 Assessment and Plan (1) Cellulitis of right leg Current visit: Yes Status: Acute She has been started on IV vancomycin and Levaquin. Lactobacillus will be added. (2) Acute exacerbation of chronic obstructive airways disease Current visit: Yes Status: Acute Order chest CT to further evaluate for pneumonia. Continue vancomycin and Levaquin. Add lactobacillus. (3) Macrocytosis without anemia Current visit: No Status: Acute B12, folate, and TSH April 2018 were normal. (4) Venous stasis dermatitis of both lower extremities Current visit: No Status: Acute She will keep legs elevated. No ulcerative areas are seen. Continue antibiotics for possible superimposed cellulitis. (5) Weight loss Current visit: Yes Status: Acute TSH was normal 04/24/2018 at 0.833. Order chest CT as per above. Internal Medicine - H&P: HPI Chief complaint: Dyspnea, leg redness Admitted From: Emergency Dept Plans for Post Hospital Care: Home History of present illness: Ms. Armijo is a 67 year old female who came to emergency room stating she developed dyspnea and increasing redness in her right leg over the preceding 2 days. She had a cough that was productive of thick mucus. She was evaluated in emergency room and diagnosed with leg cellulitis. There was leukocytosis with slight left shift. She was admitted to [facility] floor for ongoing care needs. She was hospitalized [facility] approximately 2 months ago with leg erythema. It was felt to be chronic venous stasis and she was not given antibiotics after adm ission or upon discharge. She had acute on chronic renal insufficiency. Lisinopril and Lasix were discontinued and have not been restarted. She follows with a [place] gore cutter for chronic kidney disease. She has history of kidney stones but denies other kidney or bladder disorders. Respiratory history is significant for having smoked from age 24 until November 2017. She smoked up to one pack per day. She has a diagnosis of COPD and wears oxygen at bedtime and when necessary during day time. She has MARIANO but does not consistently use prescribed CPAP. Past Med Surg Social Fam HX - Past Medical History Medical history: cancer, COPD, GERD, hyperlipidemia, hypertension Additional medical history: breast ca Psychiatric history: no psych history - Past Surgical History Surgical History: breast surgery, cancer surgery, hip replacement, orthopedic, other, other Additional surgical history: bilat knee replacement; right hip; femur surgery, left lumpectomy - Social History Smoking Status: Former smoker Smokeless Tobacco Status: No Alcohol use: none Drug use: none - Family History Mother Living Status: Hx Family Cardiac Disorders: Yes Hx Family Cancer: No Hx Family GI Disorders: No Hx Family Endocrine Disorder: Yes (DM) Hx Family Neuromuscular Disorders: No Hx Family Neurologic Disorders: No Hx Family HEENT Disorders: No Hx Family Autoimmune Disorders: No Father Living Status: Hx Family Cardiac Disorders: Yes Hx Family Respiratory Disorders: No Hx Family Cancer: Yes (Colon) Hx Family GI Disorders: No Hx Family Endocrine Disorder: No Hx Family Neuromuscular Disorders: No Hx Family Neurologic Disorders: No Hx Family HEENT Disorders: No Hx Family Autoimmune Disorders: No Internal Medicine - H&P: Meds Allopurinol [Zyloprim 300 MG] 300 mg PO DAILY 11/18/17 [History] Budesonide/Formoterol 160/4.5 [Symbicort 160/4.5] 2 puff IH BIDR 11/18/17 [History] Ipratropium/Albuterol Neb [Duoneb] 3 ml IH Q6HR PRN 11/18/17 [History] Polyethylene Glycol 3350 [MiraLAX] 17 gm PO PRN PRN 11/18/17 [History] Raloxifene [Evista] 60 mg PO DAILY 11/18/17 [History] Rosuvastatin Calcium [Crestor] 20 mg PO DAILY 11/18/17 [History] Tiotropium [Spiriva] 18 mcg IH 0700 11/18/17 [History] Baclofen 20 mg PO BID 04/24/18 [History] Esomeprazole Magnesium [Nexium] 40 mg PO DAILY 04/24/18 [History] Venlafaxine XR (24 HR) [Effexor Xr] 150 mg PO DAILY 04/24/18 [History] Oxycodone HCl/Acetaminophen [Percocet 5-325 mg Tablet] 1 each PO TID PRN 5 Days #15 tablet 04/26/18 [Rx] Guaifenesin [Mucinex] 600 mg PO DAILY 05/16/18 [History] Metoprolol [Lopressor] 50 mg PO BID 05/16/18 [History] Nicotine Patch [Nicoderm] 7 mg TD DAILY 05/16/18 [History] Allergy/AdvReac Type Severity Reaction Status Date / Time adhesive tape Allergy Hives Verified 05/16/18 20:06 pregabalin [From Lyrica] Allergy Dizziness Verified 05/16/18 20:06 Sulfa (Sulfonamide Allergy Swelling Verified 05/16/18 20:06 Antibiotics) of the Eye alprazolam [From Xanax] AdvReac Fatigued Verified 05/16/18 20:06 amitriptyline AdvReac Fatigued Verified 05/16/18 20:06 gabapentin AdvReac See Verified 05/16/18 20:06 Comments Tizanidine AdvReac Rash Verified 05/16/18 20:06 All Systems PM: A 10-system review of systems was performed and is negative for pertinent findings except as documented above in the HPI. Review of systems: Review of systems from her April 2018 [facility] hospitalization were reviewed and revised as below. Gen.: Her weight has decreased from 78.95 kg on 05/17/2018 to 72.575 kg on admission now. Cardiovascular: She has history of hypertension but denies [place] heart failure angina DVT or pulmonary embolus Respiratory: As per history of present illness GI: She denies disorders of her liver gallbladder or exocrine pancreas. She has GERD. : As per history of present illness Neurologic: She denies large distribution strokes or seizures Endocrine: She has been told she has pre-diabetes. Most recent hemoglobin A1c was 5.8% on 05/18/2018. She has hyperlipidemia but denies thyroid disease Hematology/oncology: She has had anemia in the past. She had breast cancer diagnosed 2007 and had lumpectomy, XRT, and chemotherapy. She is presumed cancer free. She denies other known internal malignancies Psychiatric: She has anxiety but denies depression or other mental health issues Musculoskeletal: She has had left elbow tendon surgery, DJD with bilateral total knee replacements, total hip replacement and 4 back surgeries. She has gout and takes allopurinol daily. - Constitutional Vitals: Temp Pulse Resp BP Pulse Ox 98.6 F 95 18 138/78 93 07/11/18 11:35 07/11/18 11:35 07/11/18 11:35 07/11/18 11:35 07/11/18 11:35 Exam: Gen.: She is a well-developed well-nourished female who appears to have chills and shaking at present time HEENT: Head is atraumatic and normocephalic. Eyes: EOMI. There is no scleral icterus. Mouth: Mucosa is moist. Neck: Supple and nontender. There is no thyromegaly or adenopathy noted. Heart: Regular without murmurs gallops or ectopics Lungs: She has egophony in the right mid posterior lung field. No expiratory wheezing is heard. Breath sounds are symmetric. Back: Straight with midline surgical scar which is well-healed from previous back surgeries Abdomen: Soft and nontender. No masses or guarding are noted. Extremities: She has significant erythema for lower legs bilaterally more on the right than the left. There is no cyanosis edema or clubbing noted. Dorsalis pedis and posterior tibial pulses are trace palpable bilaterally. Neurologic: Mental status: She is talkative and a good historian. Cranial nerves: Smile is symmetric. Forehead wrinkles bilaterally. Tongue protrudes midline. EOMI. Motor: There is no pronator drift. Cerebellar: Finger to nose is intact bilaterally. Skin: Warm and dry Internal Med - H&P Results - Labs CBC & Chem 7: 07/10/18 21:25 07/10/18 21:25 Labs: Short CBC 07/10/18 07/10/18 07/10/18 Range/Units 21:25 21:25 21:25 WBC 15.2 H (4.3-11.1) K/mcL RBC 3.67 L (3.82-4.97) M/mcL Hgb 11.8 (11.5-15.4) g/dL Hct 36.8 (35.3-44.9) % MCV 100.3 H (83.0-100.0) fL MCH 32.2 (28.0-33.3) pg MCHC 32.1 (31.6-35.5) g/dL RDW 14.2 (11.5-14.5) % Plt Count 220 (140-400) K/mcL MPV 9.5 (9.4-12.4) fL Immature Gran % 0.7 (0-4) % Seg Neutrophils % 78.7 % Lymphocytes % 10.3 % Monocytes % 9.4 % Eosinophils % 0.7 % Basophils % 0.2 % Neutrophils # 12.0 H (1.6-8.9) K/mcL Lymphocytes # 1.6 (0.6-4.6) K/mcL Monocytes # 1.4 H (0.0-1.3) K/mcL Eosinophils # 0.1 (0.0-0.6) K/mcL Basophils # 0.0 (0.0-0.2) K/mcL PT 11.6 (9.4-12.1) Seconds INR 1.0 Sample Site ABG pH (7.32-7.45) pH Units ABG pCO2 (35-45) mmHg ABG pO2 (85-104) mmHg ABG HCO3 (21-27) mEq/L ABG Total CO2 (20-26) mEq/L ABG O2 Saturation (95-98) % ABG Base Excess (-2 to 3) mEq/L Js Test O2 Delivery Device Inspired O2 (1-15=lpm [id number]=%) Sodium 133 L (136-145) mEq/L Potassium 3.5 (3.5-5.1) mEq/L Chloride 100 (98-107) mEq/L Carbon Dioxide 27 (23-29) mEq/L BUN 13 (8-23) mg/dL Creatinine 1.05 (0.60-1.20) mg/dL Est GFR ( Amer) > 60 (> 60) Est GFR (Non-Af Amer) 53 L (> 60) BUN/Creatinine Ratio 12 (6-26) Glucose 114 H (70-105) mg/dL Calculated Osmolality 277 L (280-300) Lactic Acid (0.5-2.2) mmol/L Calcium 9.8 (8.6-10.3) mg/dL Troponin I < 0.03 (< 0.04) ng/mL B-Natriuretic Peptide (Less than 100) pg/mL Urine Color (Yellow) Urine Clarity (Clear) Urine pH (5.0-8.0) pH Units Ur Specific [place] (1.010-1.025) Urine Protein (Neg-Trace) mg/dL Urine Glucose (UA) (Normal) mg/dL Urine Ketones (Negative) mg/dL Urine Blood (Negative) Urine Nitrite (Negative) Urine Bilirubin (Negative) Urine Urobilinogen (Normal) mg/dL Ur Leukocyte Esterase (Negative) Ur Culture Indicated? (NO) 10/23/18 10/23/18 10/23/18 Range/Units 21:25 21:25 23:21 WBC (4.3-11.1) K/mcL RBC (3.82-4.97) M/mcL Hgb (11.5-15.4) g/dL Hct (35.3-44.9) % MCV (83.0-100.0) fL MCH (28.0-33.3) pg MCHC (31.6-35.5) g/dL RDW (11.5-14.5) % Plt Count (140-400) K/mcL MPV (9.4-12.4) fL Immature Gran % (0-4) % Seg Neutrophils % % Lymphocytes % % Monocytes % % Eosinophils % % Basophils % % Neutrophils # (1.6-8.9) K/mcL Lymphocytes # (0.6-4.6) K/mcL Monocytes # (0.0-1.3) K/mcL Eosinophils # (0.0-0.6) K/mcL Basophils # (0.0-0.2) K/mcL PT (9.4-12.1) Seconds INR Sample Site ABG pH (7.32-7.45) pH Units ABG pCO2 (35-45) mmHg ABG pO2 (85-104) mmHg ABG HCO3 (21-27) mEq/L ABG Total CO2 (20-26) mEq/L ABG O2 Saturation (95-98) % ABG Base Excess (-2 to 3) mEq/L Js Test O2 Delivery Device Inspired O2 (1-15=lpm [id number]=%) Sodium (136-145) mEq/L Potassium (3.5-5.1) mEq/L Chloride (98-107) mEq/L Carbon Dioxide (23-29) mEq/L BUN (8-23) mg/dL Creatinine (0.60-1.20) mg/dL Est GFR ( Amer) (> 60) Est GFR (Non-Af Amer) (> 60) BUN/Creatinine Ratio (6-26) Glucose (70-105) mg/dL Calculated Osmolality (280-300) Lactic Acid 0.9 1.2 (0.5-2.2) mmol/L Calcium (8.6-10.3) mg/dL Troponin I (< 0.04) ng/mL B-Natriuretic Peptide 94 (Less than 100) pg/mL Urine Color (Yellow) Urine Clarity (Clear) Urine pH (5.0-8.0) pH Units Ur Specific [place] (1.010-1.025) Urine Protein (Neg-Trace) mg/dL Urine Glucose (UA) (Normal) mg/dL Urine Ketones (Negative) mg/dL Urine Blood (Negative) Urine Nitrite (Negative) Urine Bilirubin (Negative) Urine Urobilinogen (Normal) mg/dL Ur Leukocyte Esterase (Negative) Ur Culture Indicated? (NO) 07/11/18 07/11/18 07/11/18 Range/Units 00:42 04:37 05:19 WBC (4.3-11.1) K/mcL RBC (3.82-4.97) M/mcL Hgb (11.5-15.4) g/dL Hct (35.3-44.9) % MCV (83.0-100.0) fL MCH (28.0-33.3) pg MCHC (31.6-35.5) g/dL RDW (11.5-14.5) % Plt Count (140-400) K/mcL MPV (9.4-12.4) fL Immature Gran % (0-4) % Seg Neutrophils % % Lymphocytes % % Monocytes % % Eosinophils % % Basophils % % Neutrophils # (1.6-8.9) K/mcL Lymphocytes # (0.6-4.6) K/mcL Monocytes # (0.0-1.3) K/mcL Eosinophils # (0.0-0.6) K/mcL Basophils # (0.0-0.2) K/mcL PT (9.4-12.1) Seconds INR Sample Site R Brach ABG pH 7.39 (7.32-7.45) pH Units ABG pCO2 38 (35-45) mmHg ABG pO2 84 L (85-104) mmHg ABG HCO3 23 (21-27) mEq/L ABG Total CO2 24 (20-26) mEq/L ABG O2 Saturation 96 (95-98) % ABG Base Excess -1 (-2 to 3) mEq/L Js Test N/A O2 Delivery Device Cannula Inspired O2 2.0 (1-15=lpm ib81-528=%) Sodium (136-145) mEq/L Potassium (3.5-5.1) mEq/L Chloride (98-107) mEq/L Carbon Dioxide (23-29) mEq/L BUN (8-23) mg/dL Creatinine (0.60-1.20) mg/dL Est GFR ( Amer) (> 60) Est GFR (Non-Af Amer) (> 60) BUN/Creatinine Ratio (6-26) Glucose (70-105) mg/dL Calculated Osmolality (280-300) Lactic Acid (0.5-2.2) mmol/L Calcium (8.6-10.3) mg/dL Troponin I < 0.03 (< 0.04) ng/mL B-Natriuretic Peptide (Less than 100) pg/mL Urine Color Yellow (Yellow) Urine Clarity Clear (Clear) Urine pH 6.5 (5.0-8.0) pH Units Ur Specific [place] <= 1.005 L (1.010-1.025) Urine Protein Negative (Neg-Trace) mg/dL Urine Glucose (UA) Normal (Normal) mg/dL Urine Ketones Negative (Negative) mg/dL Urine Blood Negative (Negative) Urine Nitrite Negative (Negative) Urine Bilirubin Negative (Negative) Urine Urobilinogen Normal (Normal) mg/dL Ur Leukocyte Esterase Negative (Negative) Ur Culture Indicated? NO (NO) 07/11/18 Range/Units 10:25 WBC (4.3-11.1) K/mcL RBC (3.82-4.97) M/mcL Hgb (11.5-15.4) g/dL Hct (35.3-44.9) % MCV (83.0-100.0) fL MCH (28.0-33.3) pg MCHC (31.6-35.5) g/dL RDW (11.5-14.5) % Plt Count (140-400) K/mcL MPV (9.4-12.4) fL Immature Gran % (0-4) % Seg Neutrophils % % Lymphocytes % % Monocytes % % Eosinophils % % Basophils % % Neutrophils # (1.6-8.9) K/mcL Lymphocytes # (0.6-4.6) K/mcL Monocytes # (0.0-1.3) K/mcL Eosinophils # (0.0-0.6) K/mcL Basophils # (0.0-0.2) K/mcL PT (9.4-12.1) Seconds INR Sample Site ABG pH (7.32-7.45) pH Units ABG pCO2 (35-45) mmHg ABG pO2 (85-104) mmHg ABG HCO3 (21-27) mEq/L ABG Total CO2 (20-26) mEq/L ABG O2 Saturation (95-98) % ABG Base Excess (-2 to 3) mEq/L Js Test O2 Delivery Device Inspired O2 (1-15=lpm vi89-415=%) Sodium (136-145) mEq/L Potassium (3.5-5.1) mEq/L Chloride (98-107) mEq/L Carbon Dioxide (23-29) mEq/L BUN (8-23) mg/dL Creatinine (0.60-1.20) mg/dL Est GFR ( Amer) (> 60) Est GFR (Non-Af Amer) (> 60) BUN/Creatinine Ratio (6-26) Glucose (70-105) mg/dL Calculated Osmolality (280-300) Lactic Acid (0.5-2.2) mmol/L Calcium (8.6-10.3) mg/dL Troponin I < 0.03 (< 0.04) ng/mL B-Natriuretic Peptide (Less than 100) pg/mL Urine Color (Yellow) Urine Clarity (Clear) Urine pH (5.0-8.0) pH Units Ur Specific [place] (1.010-1.025) Urine Protein (Neg-Trace) mg/dL Urine Glucose (UA) (Normal) mg/dL Urine Ketones (Negative) mg/dL Urine Blood (Negative) Urine Nitrite (Negative) Urine Bilirubin (Negative) Urine Urobilinogen (Normal) mg/dL Ur Leukocyte Esterase (Negative) Ur Culture Indicated? (NO) BMP 07/10/18 21:25 Sodium 133 L Potassium 3.5 Chloride 100 Carbon Dioxide 27 BUN 13 Creatinine 1.05 Glucose 114 H Calcium 9.8 Cardiac Enzymes 07/10/18 07/11/18 07/11/18 Range/Units 21:25 04:37 10:25 Troponin I < 0.03 < 0.03 < 0.03 (< 0.04) ng/mL Urine 07/11/18 Range/Units 05:19 Urine Color Yellow (Yellow) Urine Clarity Clear (Clear) Urine pH 6.5 (5.0-8.0) pH Units Ur Specific [place] <= 1.005 L (1.010-1.025) Urine Protein Negative (Neg-Trace) mg/dL Urine Glucose (UA) Normal (Normal) mg/dL - ABG Interpretation ABG results: 07/11/18 00:42 ABG pH 7.39 ABG pCO2 38 ABG pO2 84 L ABG HCO3 23 ABG Total CO2 24 ABG O2 Saturation 96 ABG Base Excess -1 - Impressions ITS Impressions Chest X-Ray 07/10/18 20:57 IMPRESSION: No acute findings. D/ / Luis M Agosto MD / Luis M Agosto MD Interpreting Provider: Luis M Agosto MD
[2018-07-11] MEDS: 0.45 % Sodium Chloride w/KCl 20 MEQ/1,000 ML MLS IVC SCH (15:44)
[2018-07-12] MEDS: *HR* OxyCODONE/APAP 5/325 TABLET PO PRN ×3 (02:18→19:46)
[2018-07-12 06:55] LABS: Basophils % 0.2 %; Eosinophils # 0.4 K/mcL (0.0-0.6); Eosinophils % 4.5 %; Hematocrit 37.2 % (35.3-44.9); Hemoglobin 11.6 g/dL (11.5-15.4); Immature Granulocytes % 0.3 % (0-4); Lymphocytes % 22.7 %; Mean Corpuscular HGB Conc 31.2 g/dL (31.6-35.5); Mean Corpuscular Hemoglobin 32.3 pg (28.0-33.3); Mean Corpuscular Volume 103.6 fL (83.0-100.0); Mean Platelet Volume 9.6 fL (9.4-12.4); Monocytes # 0.8 K/mcL (0.0-1.3); Monocytes % 8.9 %; Neutrophils # 5.5 K/mcL (1.6-8.9); Platelet Count 217 K/mcL (140-400); Red Blood Count 3.59 M/mcL (3.82-4.97); Red Cell Distribution Width 14.4 % (11.5-14.5); Segmented Neutrophils % 63.4 %
[2018-07-12 07:14] LABS: BUN/Creatinine Ratio 11 (6-26); Blood Urea Nitrogen 10 mg/dL (8-23); Carbon Dioxide 25 mEq/L (23-29); Chloride 111 mEq/L (98-107); Glucose 114 mg/dL (70-105); Osmolality,Calculated 292 (280-300); Potassium 3.5 mEq/L (3.5-5.1); Sodium 141 mEq/L (136-145); eGFR For Non-African Americans > 60 (> 60)
[2018-07-12] MEDS: Nicotine 7 MG PATCH.TD24 TD SCH (08:15)
[2018-07-12] MEDS: Venlafaxine XR (24 HR) 150 MG CAP.ER.24H PO SCH (08:15)
[2018-07-12] MEDS: Tiotropium 18 MCG inhalation IH SCH (08:52)
[2018-07-12] MEDS: Budesonide/Formoterol 160/4.5 1 PUFF INH IH SCH ×2 (08:53→20:27)
--- NOTE | 2018-07-12 11:45 | Internal Med Progress Note ---
Date of Encounter: 07/12/18 Time of Encounter: 11:35 - Assessment and plan (1) Cellulitis of right leg Current Visit: Yes Status: Acute Assessment and plan: July 12. Continue IV vancomycin, Levaquin, and lactobacillus. (2) Acute exacerbation of chronic obstructive airways disease Current Visit: Yes Status: Acute Assessment and plan: July 12. Chest CT was unremarkable. Continue present regimen. (3) Macrocytosis without anemia Current Visit: No Status: Acute Assessment and plan: July 12. B12, folate, and TSH were normal April 2018. (4) Venous stasis dermatitis of both lower extremities Current Visit: No Status: Acute Assessment and plan: July 12. Continue antibiotics and leg elevation. (5) Weight loss Current Visit: Yes Status: Acute Assessment and plan: July 12. TSH normal and chest CT unremarkable for worrisome pathology. (6) Multiple thyroid nodules Current Visit: Yes Status: Acute Assessment and plan: July 12. Chest CT showed thyroid gland with multiple nodules. Her PCP can follow-up as recommended with ultrasound. - Subjective Interval history: July 12. She has no new complaints except she admits to feeling anxious and does not like being alone as frequently occurs during her daily routine at home. - Constitutional Vitals: Temp Pulse Resp BP Pulse Ox 97.8 F 79 16 172/93 100 07/12/18 10:00 07/12/18 10:00 07/12/18 10:00 07/12/18 10:00 07/12/18 10:00 Exam: She is sitting on the side of bed and appears in no acute distress. She is wearing oxygen by nasal cannula. She does appear slightly anxious. The right leg shows unchanged erythema borders but less intense redness. I reviewed her medications and lab results. I reviewed her chest CT result. Internal Medicine: Result - Labs CBC & Chem 7: 07/12/18 06:22 07/12/18 06:22 Labs: Short CBC 07/12/18 Range/Units 06:22 WBC 8.6 (4.3-11.1) K/mcL Hgb 11.6 (11.5-15.4) g/dL Hct 37.2 (35.3-44.9) % Plt Count 217 (140-400) K/mcL Neutrophils # 5.5 (1.6-8.9) K/mcL BMP 07/12/18 06:22 Sodium 141 Potassium 3.5 Chloride 111 H Carbon Dioxide 25 BUN 10 Creatinine 0.90 Glucose 114 H Calcium 9.0 - ABG Interpretation ABG results: ABG ABG pH 7.39 pH Units (7.32-7.45) 07/11/18 00:42 ABG pCO2 38 mmHg (35-45) 07/11/18 00:42 ABG pO2 84 mmHg (85-104) L 07/11/18 00:42 ABG O2 Saturation 96 % (95-98) 07/11/18 00:42 PT/INR, D-dimer PT 11.6 Seconds (9.4-12.1) 07/10/18 21:25 - Impressions Impressions Chest CT 07/11/18 12:25 IMPRESSION: No acute findings. Stable nodules since 2014 likely are benign. Thyroid gland is heterogeneous with multiple nodules. Follow-up with thyroid sonography. D/ / 07/11/2018 14:28:13 Luis Carlos Abbasi MD / [facility] Interpreting Provider: Luis Carlos Abbasi MD Consult Discharge Plan - Plan Referrals: Ramon Geller MD [Primary Care Provider] - 1 week
[2018-07-12] MEDS: 0.45 % Sodium Chloride w/KCl 20 MEQ/1,000 ML MLS IVC SCH (12:42)
[2018-07-12] MEDS: *HR* LORazepam 0.5 MG TABLET PO PRN ×2 (12:44→23:29)
[2018-07-12] MEDS: levoFLOXacin 500 MG TABLET PO SCH (12:44)
[2018-07-12] MEDS: Lactobacillus 1 EACH CAP.SPRINK PO SCH (19:47)
[2018-07-12] MEDS ORDERED: Levofloxacin 750 MG/150 ML 750 MG/150 ML BAG IVPB SCH (23:00)
[2018-07-13 06:39] VITALS: BP 199/69
[2018-07-13] MEDS: Tiotropium 18 MCG inhalation IH SCH (08:53)
[2018-07-13] MEDS: Budesonide/Formoterol 160/4.5 1 PUFF INH IH SCH (08:54)
--- NOTE | 2018-07-13 10:05 | Discharge Summary ---
Orders not resulted at time of discharge: Pending orders 07/10/18 21:25 Culture,Blood [BC] Stat 07/13/18 22:00 Vancomycin,Trough Timed Date of Encounter: 07/13/18 Time of Encounter: 09:55 - Discharge Diagnosis (1) Cellulitis of right leg Priority: Primary Status: Acute (2) Acute exacerbation of chronic obstructive airways disease Priority: Secondary Status: Acute (3) Macrocytosis without anemia Priority: Secondary Status: Acute (4) Venous stasis dermatitis of both lower extremities Priority: Secondary Status: Acute (5) Weight loss Priority: Secondary Status: Acute (6) Multiple thyroid nodules Priority: Secondary Status: Acute Hospital course: Ms. Armijo is a 67 year old female who came to emergency room stating she developed dyspnea and increasing redness in her right leg over the preceding 2 days. She had a cough that was productive of thick mucus. She was evaluated in emergency room and diagnosed with leg cellulitis. There was leukocytosis with slight left shift. She was admitted to [facility] floor for ongoing care needs. Initial orders were written by the emergency room physician. I saw her on July 11 and performed the history and physical. She was started on IV vancomycin and Levaquin in emergency room. Lactobacillus was added. She had decreased erythema and pain in her lower legs during the course of hospitalization. Her breathing also improved. WBC normalized to 8.6 by July 12. On July 13 she felt stable for discharge home. She will continue with antibiotic and probiotic for 3 additional days at home. She will follow with her PCP Dr. Ramon Geller within 1 week. I encouraged her to keep her legs elevated at rest and use compression stockings. - Time Spent with Patient Total time spent providing and/or coordinating discharge services: - Discharge Medications Prescriptions: Doxycycline 100 mg PO BID #6 capsule Lactobacillus [Culturelle] 1 each PO BID #6 cap.sprink levoFLOXacin [Levaquin] 750 mg PO DAILY #3 tablet Home Medications: Allopurinol [Zyloprim 300 MG] 300 mg PO DAILY 11/18/17 [History] Budesonide/Formoterol 160/4.5 [Symbicort 160/4.5] 2 puff IH BIDR 11/18/17 [History] Ipratropium/Albuterol Neb [Duoneb] 3 ml IH Q6HR PRN 11/18/17 [History] Polyethylene Glycol 3350 [MiraLAX] 17 gm PO PRN PRN 11/18/17 [History] Raloxifene [Evista] 60 mg PO DAILY 11/18/17 [History] Rosuvastatin Calcium [Crestor] 20 mg PO DAILY 11/18/17 [History] Tiotropium [Spiriva] 18 mcg IH 0700 11/18/17 [History] Baclofen 20 mg PO BID 04/24/18 [History] Esomeprazole Magnesium [Nexium] 40 mg PO DAILY 04/24/18 [History] Venlafaxine XR (24 HR) [Effexor Xr] 150 mg PO DAILY 04/24/18 [History] Oxycodone HCl/Acetaminophen [Percocet 5-325 mg Tablet] 1 each PO TID PRN 5 Days #15 tablet 04/26/18 [Rx] Guaifenesin [Mucinex] 600 mg PO DAILY 05/16/18 [History] Metoprolol [Lopressor] 50 mg PO BID 05/16/18 [History] Nicotine Patch [Nicoderm] 7 mg TD DAILY 05/16/18 [History] Doxycycline 100 mg PO BID #6 capsule 07/13/18 [Rx] Lactobacillus [Culturelle] 1 each PO BID #6 cap.sprink 07/13/18 [Rx] levoFLOXacin [Levaquin] 750 mg PO DAILY #3 tablet 07/13/18 [Rx] Allergies/Adverse Reactions: Allergy/AdvReac Type Severity Reaction Status Date / Time adhesive tape Allergy Hives Verified 05/16/18 20:06 pregabalin [From Lyrica] Allergy Dizziness Verified 05/16/18 20:06 Sulfa (Sulfonamide Allergy Swelling Verified 05/16/18 20:06 Antibiotics) of the Eye alprazolam [From Xanax] AdvReac Fatigued Verified 05/16/18 20:06 amitriptyline AdvReac Fatigued Verified 05/16/18 20:06 gabapentin AdvReac See Verified 05/16/18 20:06 Comments Tizanidine AdvReac Rash Verified 05/16/18 20:06 Date of admission: 07/10/18 22:53 Primary care physician: Ramon Geller MD - Constitutional Vitals: Temp Pulse Resp BP Pulse Ox 98.2 F 97 14 199/69 95 07/13/18 06:38 07/13/18 06:38 07/13/18 08:54 07/13/18 06:38 07/13/18 09:34 - Patient Status Disposition: Home, Self-Care Condition: Fair - Discharge Instructions Follow Up With: Ramon Geller MD [Primary Care Provider] - 1 week - Diet and Activity Activity: resume usual activities as tolerated Diet: advance to your usual diet
[2018-07-13] MEDS: Lactobacillus 1 EACH CAP.SPRINK PO SCH (10:14)
[2018-07-13] MEDS: levoFLOXacin 500 MG TABLET PO SCH (10:14)
[2018-07-13] MEDS: *HR* OxyCODONE/APAP 5/325 TABLET PO PRN (10:14)
[2018-07-13] MEDS: Venlafaxine XR (24 HR) 150 MG CAP.ER.24H PO SCH (10:14)
[2018-07-13] MEDS: Nicotine 7 MG PATCH.TD24 TD SCH (10:17)
--- NOTE | 2018-07-14 21:50 | Electrocardiograph Report ---
[address] [place], [place] [address] Test Date: 2018-07-10 Pat Name: Snow Armioj Department: [id number] Room: [facility] Gender: F Bowl Attendant: [id number] : 1950 Requested By: Pernell Monae Order Number: [id number] Reading MD: Chaz Carranza Measurements Intervals [place] Rate: 123 P: 63 AR: 130 QRS: 13 QRSD: 85 T: 12 QT: 318 QTc: 391 Interpretive Statements SINUS TACHYCARDIA WITH OCCASIONAL SUPRAVENTRICULAR PREMATURE COMPLEXES MINIMAL ST DEPRESSION Electronically Signed On 07-14-2018 21:48:50 EDT by Chaz Carranza
== END 2018-07-13 12:00 | disposition home or self-care (01) ==
LOC: INPPIK 20:43 → EMEROOPIK 20:43 → INPPIK 23:50
PROVIDERS: ADMIT Internal Medicine; ATTEND Internal Medicine